=== PATIENT | male | born 1975 | race Caucasian/White ===

== ENCOUNTER 2023-07-10 12:00 | Emergency (ER) | payer OTHER ==
[~2023-07-10] VITALS: Ht 182.9 cm; Wt 83.9 kg
[2023-07-10] MEDS ORDERED: IBUPROFEN 600 MG TABLET ONE (12:23)
[2023-07-10] MEDS ORDERED: ACETAMINOPHEN ES 500 MG TABLET ONE (12:23)
[2023-07-10] MEDS ORDERED: IBUPROFEN 600 MG TABLET PO ONE (12:30)
[2023-07-10] MEDS ORDERED: ACETAMINOPHEN ES 500 MG TABLET PO ONE (12:30)
[2023-07-10] MEDS ORDERED: METH-647 PO ×2 (14:05→14:19)
[2023-07-10] MEDS ORDERED: IBUP-1957 PO ×2 (14:05→14:19)
[2023-07-10 14:37] VITALS: BP 115/85; TEMP 98.4; O2SAT 100
== END 2023-07-10 14:36 | disposition home or self-care (01) ==
LOC: ER 12:12
DX: M54.50 Low back pain, unspecified (principal); S30.0XXA Contusion of lower back and pelvis, initial encounter; W18.09XA Striking against other object with subsequent fall, initial encounter; Y93.89 Activity, other specified; Y92.89 Other specified places as the place of occurrence of the external cause; Y99.8 Other external cause status
CPT/HCPCS: 72131-TC